=== PATIENT | female | born 1965 | race Caucasian/White ===

== ENCOUNTER → 2021-07-05 | Outpatient (CLI) | payer MEDICARE, OTHER ==
[~2021-07-05] MED LIST: BUPR75; CYCL10 PO; FERR325 PO; GABA100 PO; GABA300 PO; HYDACE7.5 PO; HYDCHL25 PO; METF500 PO; Naprosyn500 MG PO; PERCOCET PO; PRED10 PO; PROM25 PO; Percocet 5-3251 EACH PO; SITA25T2 PO; TAMS.4ER PO; TRAZ50 PO; [UNRECOGNIZED DRUG - OTHER]
[2021-07-13 06:09] LABS: CARBOXY-THC 34 (.)
== END ==
LOC: LAB 16:50 → LAB SHORT 16:50
PROVIDERS: Family Medicine
DX: G89.4 Chronic pain syndrome (principal); Z88.8 Allergy status to other drugs, medicaments and biological substances
CPT/HCPCS: G0480

== ENCOUNTER → 2023-06-30 | Outpatient (CLI) | payer MEDICARE, OTHER ==
[2023-07-07 11:08] LABS: AMITRIPTYLINE Negative (Cutoff=100); CLOMIPRAMINE Negative (Cutoff=100); CYCLOBENZAPRINE Positive (.); CYCLOBENZAPRINE CONF 335 ng/mL (Cutoff=100); DESIPRAMINE Negative (Cutoff=100); DOXEPIN Negative (Cutoff=100); IMIPRAMINE Negative (Cutoff=100); NORDOXEPIN Negative (Cutoff=100); NORTRIPTYLINE Negative (Cutoff=100); PROTRIPTYLINE Negative (Cutoff=100); TRICYCLIC ANTIDEP Positive ng/mL (Cutoff=100); TRIMIPRAMINE Negative (Cutoff=100)
== END ==
LOC: LAB 04:05 → LAB SHORT 04:05
PROVIDERS: Family Medicine
DX: G89.4 Chronic pain syndrome (principal)
CPT/HCPCS: G0480; G0481